=== PATIENT | male | born 1955 | race African-American/Black ===

== ENCOUNTER 2017-07-23 10:24 | Emergency (ER) | payer SELFPAY ==
[2017-07-23 11:49] LABS: Base Excess-Venous -8.5 mmol/L (0 (+/- 2.5)); Bicarbonate (HCO3v) 23.6 mmol/L (1.0-85.0); CO2 Tension (PvCO2) 84.3 mmHg (41.0-51.0); Calcium, Ionized 1.27 mmol/L (1.12-1.32); Hemoglobin - Calc 13.5 g/dL (12.0-18.0); Lactate 5.75 mmol/L (0.50-2.20); O2 Tension (PvO2) 37.2 mmHg (35.0-45.0); T. Carbon Dioxide 26.2 mmol/L (1.0-85.0); pH (Venous) 7.056 (7.35-7.45); vO2 Saturation-calc 46.6 % (94-98)
[2017-07-23] MEDS ORDERED: EPINEPHrine 1 MG/10 ML Abboject SYRINGE ONE (18:00)
[2017-07-23] MEDS ORDERED: Sodium Bicarb 50 MEQ/50 ML Abboject 8.4% SYRINGE ONE (18:00)
== END 2017-07-23 10:31 | disposition expired ==
LOC: ERS 10:24
DX: I46.9 Cardiac arrest, cause unspecified (principal)
CPT/HCPCS: 36680; 82330; 82435; 82565; 82803; 82947; 83605; 84132; 84295; 85014; 92950; J0171